=== PATIENT | male | born 1965 | race African-American/Black ===

== ENCOUNTER 2022-06-16 14:30 | Inpatient (IN) | payer OTHER ==
[2022-06-16 16:58] VITALS: BMI 22.8
[2022-06-16] MEDS ORDERED: IBUPROFEN 400 MG TABLET (FP) PO PRN (18:13)
[2022-06-16] MEDS ORDERED: ACETAMINOPHEN 325 MG TABLET (FP) PO PRN ×2 (18:13)
[2022-06-16] MEDS ORDERED: BISMUTH SUBSALICYLATE 524 MG/30 ML PO PRN (18:13)
[2022-06-16] MEDS ORDERED: LOPERAMIDE HCL 2 MG CAPSULE PO PRN (18:13)
[2022-06-16] MEDS ORDERED: NICOTINE 10 MG CARTRIDGE (INHALER) IH PRN (18:13)
[2022-06-16] MEDS ORDERED: BENZOCAINE/MENTHOL (CHLORASEPTIC ) LOZENGE MM PRN (18:13)
[2022-06-16] MEDS ORDERED: MAGNESIUM HYDROX 2400MG/30ML ORAL SUSPENSION 30 ML CUP PO PRN (18:13)
[2022-06-16] MEDS ORDERED: DICYCLOMINE HCL 10 MG CAPSULE PO PRN (18:13)
[2022-06-16] MEDS ORDERED: ONDANSETRON *ODT* 4 MG TABLET SL PRN (18:13)
[2022-06-16] MEDS ORDERED: MAG HYDROX/AL HYDROX/SIMETH 30 ML UNIT-DOSE CUP PO PRN (18:13)
[2022-06-16] MEDS ORDERED: IBUPROFEN 600 MG TABLET (FP) PO PRN (18:13)
[2022-06-16] MEDS ORDERED: MAGNESIUM CITRATE 300 ML BOTTLE PO PRN (18:13)
[2022-06-16] MEDS ORDERED: cloNIDine HCL 0.1 MG TABLET ONE (18:44)
[2022-06-16] MEDS: cloNIDine HCL 0.1 MG TABLET PO PRN (18:50)
[2022-06-16] MEDS ORDERED: methaDONE HCL 10 MG TABLET (FOR DETOX USE ONLY) PO ONE (19:45)
[2022-06-16] MEDS: THIAMINE HCL 100 MG TABLET (FP) PO SCH (21:46)
[2022-06-16] MEDS: AMOXICILLIN 500 MG CAPSULE (FP) PO SCH (21:46)
[2022-06-16] MEDS: hydrOXYzine PAMOATE 25 MG CAPSULE (FP) PO SCH (21:47)
[2022-06-16] MEDS: MELATONIN 5 MG TABLETS PO SCH (21:47)
[2022-06-16] MEDS: BENZOCAINE 20 % GEL TUBE MM SCH (21:49)
[2022-06-17] MEDS: hydrOXYzine PAMOATE 25 MG CAPSULE (FP) PO SCH ×5 (06:46→22:20)
[2022-06-17] MEDS: cloNIDine HCL 0.1 MG TABLET PO PRN ×2 (06:46→15:13)
[2022-06-17] MEDS: METHOCARBAMOL 500 MG TABLET PO PRN (06:46)
[2022-06-17] MEDS: AMOXICILLIN 500 MG CAPSULE (FP) PO SCH ×3 (06:46→22:20)
[2022-06-17] MEDS ORDERED: methaDONE HCL 10 MG TABLET (FOR DETOX USE ONLY) ONE (09:25)
[2022-06-17] MEDS: METHIMAZOLE 5 MG TABLET PO SCH (10:24)
[2022-06-17] MEDS: PRENATAL VITAMINS W/ FOLIC ACID TABLET (FP) PO SCH (10:24)
[2022-06-17] MEDS: BENZOCAINE 20 % GEL TUBE MM SCH ×4 (10:25→22:22)
[2022-06-17 13:44] LABS: HEMATOCRIT 34.6 % (35.4-49); HEMOGLOBIN 11.3 GM/dL (11.7-16.9); MCHC 32.8 g/dl (32.0-35.9); MEAN CELL VOLUME 88.6 fl (80-96); MEAN PLT VOLUME 9.6 fl (7.5-11.1); PLATELET COUNT 167 10^3/uL (134-434); RBC 3.91 M/mm3 (4.00-5.60); RDW 14.4 % (11.9-15.9)
[2022-06-17 14:03] LABS: BLOOD UREA NITROGEN 18.1 mg/dL (7-18); CALCIUM 8.7 mg/dL (8.5-10.1)
[2022-06-17 14:04] LABS: ALBUMIN 3.3 g/dl (3.4-5.0)
[2022-06-17 14:06] LABS: CREATININE 0.7 mg/dL (0.55-1.3)
[2022-06-17 14:08] LABS: BILIRUBIN,TOTAL 0.7 mg/dL (0.2-1); TOT PROT 6.7 g/dl (6.4-8.2)
[2022-06-17] MEDS: MELATONIN 5 MG TABLETS PO SCH (22:21)
[2022-06-17] MEDS: THIAMINE HCL 100 MG TABLET (FP) PO SCH (22:21)
[2022-06-18] MEDS: hydrOXYzine PAMOATE 25 MG CAPSULE (FP) PO SCH ×5 (06:34→22:13)
[2022-06-18] MEDS: AMOXICILLIN 500 MG CAPSULE (FP) PO SCH ×3 (06:34→22:13)
[2022-06-18] MEDS ORDERED: methaDONE HCL 10 MG TABLET (FOR DETOX USE ONLY) PO ONE (10:00)
[2022-06-18] MEDS: PRENATAL VITAMINS W/ FOLIC ACID TABLET (FP) PO SCH (10:22)
[2022-06-18] MEDS: METHIMAZOLE 5 MG TABLET PO SCH (10:22)
[2022-06-18] MEDS: BENZOCAINE 20 % GEL TUBE MM SCH ×4 (11:15→22:53)
[2022-06-18] MEDS: THIAMINE HCL 100 MG TABLET (FP) PO SCH (22:13)
[2022-06-18] MEDS: MELATONIN 5 MG TABLETS PO SCH (22:13)
[2022-06-19] MEDS: METHOCARBAMOL 500 MG TABLET PO PRN (05:11)
[2022-06-19] MEDS: AMOXICILLIN 500 MG CAPSULE (FP) PO SCH ×2 (05:11→15:05)
[2022-06-19] MEDS: hydrOXYzine PAMOATE 25 MG CAPSULE (FP) PO SCH ×5 (05:11→22:31)
[2022-06-19] MEDS ORDERED: methaDONE HCL 10 MG TABLET (FOR DETOX USE ONLY) ONE (09:18)
[2022-06-19] MEDS: PRENATAL VITAMINS W/ FOLIC ACID TABLET (FP) PO SCH (10:06)
[2022-06-19] MEDS: BENZOCAINE 20 % GEL TUBE MM SCH ×4 (11:11→22:58)
[2022-06-19] MEDS: METHIMAZOLE 5 MG TABLET PO SCH (11:11)
[2022-06-19] MEDS: MELATONIN 5 MG TABLETS PO SCH (22:31)
[2022-06-19] MEDS: THIAMINE HCL 100 MG TABLET (FP) PO SCH (22:32)
[2022-06-20] MEDS: hydrOXYzine PAMOATE 25 MG CAPSULE (FP) PO SCH ×4 (07:32→17:29)
[2022-06-20] MEDS ORDERED: methaDONE HCL 10 MG TABLET (FOR DETOX USE ONLY) PO ONE (10:00)
[2022-06-20] MEDS: PRENATAL VITAMINS W/ FOLIC ACID TABLET (FP) PO SCH (10:51)
[2022-06-20] MEDS: METHIMAZOLE 5 MG TABLET PO SCH (10:52)
[2022-06-20] MEDS: BENZOCAINE 20 % GEL TUBE MM SCH ×3 (10:55→17:29)
[2022-06-20 18:22] VITALS: BP 155/111; PULSE 83; RESP 19; TEMP 98.4
== END 2022-06-20 17:20 | disposition home or self-care (01) | DRG 773 ==
LOC: YASAS 14:30 → Y3N 18:19
PROVIDERS: ADMIT Allergy & Immunology; ATTEND Surgery
PROC: HZ2ZZZZ Detoxification Services for Substance Abuse Treatment (ICD-10-PCS; principal; 2022-06-16)
DX: F11.23 Opioid dependence with withdrawal (principal); F12.20 Cannabis dependence, uncomplicated; F17.210 Nicotine dependence, cigarettes, uncomplicated; F32.A Depression, unspecified; F41.9 Anxiety disorder, unspecified; I10 Essential (primary) hypertension; E05.90 Thyrotoxicosis, unspecified without thyrotoxic crisis or storm; K04.7 Periapical abscess without sinus; Z87.828 Personal history of other (healed) physical injury and trauma
CPT/HCPCS: 36415; 80053; 85027; 86780; 93005; 93010; C9803-CS; J0735; U0003; U0005